=== PATIENT | male | born 1985 | race Two or more races ===

== ENCOUNTER → 2022-03-14 | Emergency (ER) | payer OTHER ==
[~2022-03-14] VITALS: Ht 172.7 cm; Wt 72.6 kg
[~2022-03-14] MED LIST: HUMIRA40 MG/0.2
== END | disposition left against medical advice (07) ==
LOC: ER 01:02
DX: Z53.21 Procedure and treatment not carried out due to patient leaving prior to being seen by health care provider (principal)